=== PATIENT | female | born 1975 | race Caucasian/White ===

== ENCOUNTER 2023-11-12 13:34 | Emergency (ER) | payer SELFPAY ==
[2023-11-12] MEDS ORDERED: Dexamethasone 10 MG/ML VIAL ONE (14:03)
[2023-11-12] MEDS ORDERED: Ketorolac Tromethamine 30 MG (1 mL) VIAL ONE (14:03)
== END 2023-11-12 14:49 | disposition home or self-care (01) ==
LOC: CSHERS 13:34
DX: M54.16 Radiculopathy, lumbar region (principal); M25.521 Pain in right elbow; M79.672 Pain in left foot; M79.671 Pain in right foot
CPT/HCPCS: 96372; J1100; J1885